=== PATIENT | female | born 1955 | race Hispanic/Latino ===

== ENCOUNTER 2017-05-28 07:57 | Day surgery (SDC) | payer MEDICARE ==
[2017-05-28] MEDS ORDERED: Lactated Ringer's 500 ML IV ONE (08:31)
[2017-05-28] MEDS ORDERED: Propofol 10 mg/ml Inj (20 ML) ONE (09:59)
[2017-05-28 10:40] VITALS: TEMP 97
[2017-05-28 11:15] VITALS: BP 110/70; PULSE 88; RESP 14; O2SAT 99
== END 2017-05-28 12:00 | disposition home or self-care (01) ==
LOC: H.ENDO 07:57
PROVIDERS: ATTEND Internal Medicine Gastroenterology
DX: Z12.11 Encounter for screening for malignant neoplasm of colon (principal); R11.10 Vomiting, unspecified; E11.9 Type 2 diabetes mellitus without complications; E78.5 Hyperlipidemia, unspecified; I10 Essential (primary) hypertension; E66.9 Obesity, unspecified; K64.1 Second degree hemorrhoids
CPT/HCPCS: 43239; 88305; G0121; J2001; J2704; J7120